=== PATIENT | female | born 1955 | race African-American/Black ===

== ENCOUNTER 2017-01-11 08:59 | Emergency (ER) | payer OTHER, MEDICAID ==
[~2017-01-11] VITALS: Ht 170.2 cm; Wt 90.3 kg
[~2017-01-11 08:59] MED LIST: ALL100T PO; AMIT25TA9 PO; AMLO5TAB2 PO; ASPI-498 PO; BACL10TA PO; DOCU-137 PO; FUR40T PO; GABA300C PO; ISOS30TA4 PO; LIS10T PO; METO25TA5 PO; NOR10T PO; OMEP20CA5 PO; POTA8TAB2 PO; PROBCAP PO; SIMV-13 PO; SUCR1TAB PO; TEMA15CA PO; WARF4TAB33 PO
[2017-01-11 09:20] VITALS: BP 109/65
== END 2017-01-11 09:47 | disposition home or self-care (01) ==
LOC: ER 09:06
DX: J02.9 Acute pharyngitis, unspecified (principal); I48.91 Unspecified atrial fibrillation; M19.90 Unspecified osteoarthritis, unspecified site; M10.9 Gout, unspecified; I11.0 Hypertensive heart disease with heart failure; E78.5 Hyperlipidemia, unspecified; I50.9 Heart failure, unspecified; Z88.8 Allergy status to other drugs, medicaments and biological substances; Z88.6 Allergy status to analgesic agent; E07.9 Disorder of thyroid, unspecified; Z90.49 Acquired absence of other specified parts of digestive tract

== ENCOUNTER 2017-04-14 10:43 | Emergency (ER) | payer OTHER, MEDICAID ==
[~2017-04-14] VITALS: Ht 167.6 cm; Wt 94.8 kg
[2017-04-14 10:53] VITALS: BP 142/72
[2017-04-14] MEDS ORDERED: KETOROLAC TROMETH 60MG/2ML VIAL IM ONE (11:45)
== END 2017-04-14 12:14 | disposition home or self-care (01) ==
LOC: ER 10:54
DX: S86.911A Strain of unspecified muscle(s) and tendon(s) at lower leg level, right leg, initial encounter (principal); I11.0 Hypertensive heart disease with heart failure; I50.9 Heart failure, unspecified; E78.5 Hyperlipidemia, unspecified; E07.89 Other specified disorders of thyroid; I48.91 Unspecified atrial fibrillation; Z90.49 Acquired absence of other specified parts of digestive tract; Z88.8 Allergy status to other drugs, medicaments and biological substances; W19.XXXA Unspecified fall, initial encounter; Y93.89 Activity, other specified; Y99.8 Other external cause status; Y92.89 Other specified places as the place of occurrence of the external cause
CPT/HCPCS: 96372; 99283; J1885

== ENCOUNTER 2017-08-03 15:53 | Emergency (ER) | payer OTHER, MEDICAID ==
[~2017-08-03 15:53] MED LIST changes: -OMEP20CA5 PO; +OMEP20CA74 PO
[2017-08-03 16:06] VITALS: BP 118/76
[2017-08-03 17:15] LABS: Basophils # (auto) 0 uL; CONDITION Y; Eosinophils # (auto) 0 uL; Hematocrit 36.6 % (36.0-46.0); Hemoglobin 11.5 g/dL (12.2-16.2); Lymphocytes # (auto) 1.6 uL; Lymphocytes % (auto) 35.3 % (10.0-50.0); Mean Corpuscular Hemoglobin 28.1 pg (28.0-32.0); Mean Corpuscular Hgb Conc. 31.4 g/dL (32.0-36.0); Mean Corpuscular Volume 89.5 fL (80.0-100.0); Mean Platelet Volume 9.3 fL (7.4-10.4); Monocytes # (auto) 0.4 uL; Monocytes % (auto) 9.3 % (0.0-12.0); Neutrophils # (auto) 2.5 uL; Neutrophils % (auto) 53.4 % (37.0-80.0); Platelet Count (auto) 288 10^3/uL (140-450); Red Cell Distribution Width 18.2 % (11.6-16.0); White Blood Cell 4.6 10^3/uL (4.4-10.8)
[2017-08-03 17:31] LABS: Albumin 3.2 g/dL (3.4-5.0); Anion Gap 8 (5-15); Aspartate Aminotransferase 22 U/L (15-37); BUN/Creatinine Ratio 26.1; Blood Urea Nitrogen 30 mg/dL (7-18); Calcium 9.2 mg/dL (8.5-10.1); Carbon Dioxide 26 mmol/L (21-32); Chloride 112 mmol/L (98-107); GFR African American 62 mL/min; GFR Non-African American 51 mL/min; Glucose 112 mg/dL (74-106); Magnesium 2.5 mg/dL (1.6-2.6); Potassium 4.8 mmol/L (3.5-5.1); Sodium 146 mmol/L (136-145)
[2017-08-03 17:36] LABS: Alkaline Phosphatase 85 U/L (45-117); Bilirubin, Total 0.3 mg/dL (0.2-1.0); Total Protein 6.7 g/dL (6.4-8.2)
== END 2017-08-03 22:10 | disposition left against medical advice (07) ==
LOC: ER 16:05
DX: R10.30 Lower abdominal pain, unspecified (principal); R11.2 Nausea with vomiting, unspecified; R19.7 Diarrhea, unspecified; Z53.21 Procedure and treatment not carried out due to patient leaving prior to being seen by health care provider
CPT/HCPCS: 36415; 80053; 83735; 84484; 85025; 93005

== ENCOUNTER 2017-09-14 11:29 | Emergency (ER) | payer OTHER, MEDICAID ==
[~2017-09-14] VITALS: Ht 170.2 cm; Wt 81.6 kg
[2017-09-14 12:09] VITALS: BP 120/68
[2017-09-14] MEDS ORDERED: KETOROLAC TROMETH 60MG/2ML VIAL IM ONE (12:30)
== END 2017-09-14 12:45 | disposition home or self-care (01) ==
LOC: ER 11:29
DX: M54.41 Lumbago with sciatica, right side (principal); I10 Essential (primary) hypertension; E11.9 Type 2 diabetes mellitus without complications; I11.0 Hypertensive heart disease with heart failure; I50.9 Heart failure, unspecified; K21.9 Gastro-esophageal reflux disease without esophagitis; E78.5 Hyperlipidemia, unspecified; M19.90 Unspecified osteoarthritis, unspecified site; I48.91 Unspecified atrial fibrillation; M10.9 Gout, unspecified; Z90.49 Acquired absence of other specified parts of digestive tract; Z88.1 Allergy status to other antibiotic agents; Z88.6 Allergy status to analgesic agent
CPT/HCPCS: 96372; 99283; J1885

== ENCOUNTER 2017-09-28 08:28 | Emergency (ER) | payer OTHER, MEDICAID ==
[~2017-09-28] VITALS: Ht 170.2 cm; Wt 84.4 kg
[2017-09-28 08:39] VITALS: BP 108/62
[2017-09-28] MEDS ORDERED: methylPREDNISolone SOD SUCC 125 MG/2 ML VL IM ONE (09:00)
[2017-09-28] MEDS ORDERED: methylPREDNISolone SOD SUCC 125 MG/2 ML VL ONE (09:03)
== END 2017-09-28 09:32 | disposition home or self-care (01) ==
LOC: ER 08:28
DX: G89.29 Other chronic pain (principal); M54.5 Low back pain; I48.91 Unspecified atrial fibrillation; M10.9 Gout, unspecified; E78.5 Hyperlipidemia, unspecified; I11.0 Hypertensive heart disease with heart failure; I50.9 Heart failure, unspecified; Z88.8 Allergy status to other drugs, medicaments and biological substances; Z79.899 Other long term (current) drug therapy
CPT/HCPCS: 96372; 99283; J2930

== ENCOUNTER 2017-11-23 09:19 | Emergency (ER) | payer OTHER, MEDICAID ==
[~2017-11-23] VITALS: Ht 170.2 cm; Wt 81.6 kg
[2017-11-23 09:45] VITALS: BP 103/61
== END 2017-11-23 17:43 | disposition left against medical advice (07) ==
LOC: ER 09:19
DX: S86.911A Strain of unspecified muscle(s) and tendon(s) at lower leg level, right leg, initial encounter (principal); I48.91 Unspecified atrial fibrillation; I11.0 Hypertensive heart disease with heart failure; I50.9 Heart failure, unspecified; E78.5 Hyperlipidemia, unspecified; Z79.82 Long term (current) use of aspirin; Z79.01 Long term (current) use of anticoagulants; Z88.6 Allergy status to analgesic agent; Z88.8 Allergy status to other drugs, medicaments and biological substances; Z82.49 Family history of ischemic heart disease and other diseases of the circulatory system; W01.0XXA Fall on same level from slipping, tripping and stumbling without subsequent striking against object, initial encounter; Y93.89 Activity, other specified; Y92.89 Other specified places as the place of occurrence of the external cause; Y99.8 Other external cause status
CPT/HCPCS: 73562; 73610

== ENCOUNTER 2017-11-25 10:27 | Emergency (ER) | payer OTHER, MEDICAID ==
[~2017-11-25] VITALS: Ht 170.2 cm; Wt 81.6 kg
[2017-11-25 12:23] VITALS: BP 11/58
[2017-11-25] MEDS ORDERED: KETOROLAC TROMETH 60MG/2ML VIAL IM ONE (13:00)
== END 2017-11-25 13:20 | disposition home or self-care (01) ==
LOC: ER 10:27
DX: S83.8X1A Sprain of other specified parts of right knee, initial encounter (principal); S93.401A Sprain of unspecified ligament of right ankle, initial encounter; I11.0 Hypertensive heart disease with heart failure; I50.9 Heart failure, unspecified; E07.89 Other specified disorders of thyroid; M10.9 Gout, unspecified; Z90.49 Acquired absence of other specified parts of digestive tract; Z79.899 Other long term (current) drug therapy; Z88.8 Allergy status to other drugs, medicaments and biological substances; W19.XXXA Unspecified fall, initial encounter; Y93.89 Activity, other specified; Y99.8 Other external cause status; Y92.89 Other specified places as the place of occurrence of the external cause
CPT/HCPCS: 96372; 99283; J1885